=== PATIENT | female | born 1945 | race Hispanic/Latino ===

== ENCOUNTER 2016-08-14 17:08 | Emergency (ER) | payer MEDICARE, OTHER ==
[2016-08-14 17:28] VITALS: BP 161/70
[2016-08-14] MEDS ORDERED: ALBUTEROL SULFATE 2.5 MG/0.5 ML VIAL.NEB IH ONE ×2 (17:37→17:43)
--- NOTE | 2016-08-14 18:40 | ERNOTE ---
Medical Problem HPI - Narrative Date of Service: 08/14/16 - General Chief Complaint: Flu Symptoms Time Seen by Provider: 08/14/16 17:30 Source: patient Exam Limitations: no limitations - Immun/Allergies/Home Medications Allergies/Adverse Reactions: Allergies aspirin Allergy (Verified 08/14/16 17:22) Home Medications: HOME MEDICATIONS Albuterol Sulfate [Proair Hfa] 1 - 2 puff IH Q4H PRN #1 inhaler 08/14/16 [Last Taken Unknown] Levofloxacin [Levaquin] 500 mg PO DAILY #10 tab 08/14/16 [Last Taken Unknown] Promethazine HCl/Codeine [Phenergan W/Codeine Syrup] 5 ml PO Q4H PRN #180 ml [Last Taken Unknown] - History of Present History Narrative: patient presents from urgent care. She has had under 2 days of illness with cough. She tested positive for Influenza. She was written s ascript for Tamiflu but her sats were somewhat low so she was sent here. Patient relates a Hx of pneumonia. She states her cough is severe, no hemoptysis. She feels like when she had pneumonia in the past. No vomiting. Mild CP with cough only. No PE Sx. She tells me she is heading back home to [facility]. When I discuss blood testing with her she declines this and understands risks and benefits. She is willing to have a CXR. Timing: constant Modifying Factors - (Improves): Present: other - none Modifying Factors - (Worsens): Present: other - none Review of Systems - Review of Systems Constitutional: Present: fever ENT: Present: nose congestion Respiratory: Present: cough Cardiology: Present: See HPI Gastrointestinal/Abdominal: Absent: abdominal pain Genitourinary: Absent: dysuria Neurological: Present: no symptoms reported Physical Exam - Physical Exam General Appearance: Present: alert, no apparent distress, other - speaking in full sentences. Frequent cough. Requesting cough medication. Non-toxic, no distress. Eye Exam: Normal inspection: bilateral, PERRL: bilateral Ears, Nose, Throat: Present: nasal congestion, normal pharynx Neck: Present: normal inspection Respiratory: Present: no respiratory distress, normal breath sounds, no accessory muscle use, lungs clear, chest tenderness, other - no active wheezing. Speaks in full sentences. No distress. Frequent cough. Cardiovascular/Chest: Present: regular rate, rhythm Gastrointestinal/Abdominal: Present: normal bowel sounds, nontender Extremity Exam: Present: normal range of motion Neurological Exam: Present: alert, normal mood/affect, no motor/sensory deficits. Absent: motor weakness Skin Exam: Absent: skin rash ED Progress - Vital Signs Patient's Vital Signs:: I have reviewed the patient's vital signs. Vital Signs: Vital Signs 08/14/16 08/14/16 17:22 17:55 Temperature 36.8 C Pulse Rate 88 86 Respiratory 18 17 Rate Blood Pressure 161/70 O2 Sat by Pulse 91 93 Oximetry - X-Ray X-Ray #1 X-Ray: chest Interpretation: Interp. by me X-ray Comments: Haziness RLL possible early infiltrate - Progress/Reassessment Chief Complaint: Flu Symptoms Progress Note-Subjective: 08/14/16 18:32 Positive influenza A. Neb given. RA sates after neb 98%. No distress. patient declines blood testing. Given she is going to [facility] and CXR changes, not read by radiologist I will also cover with ABx. Tamiflu already given. She does not want to have blood testing or be observed in the hospital. She understands risks and benefits. She wishes to go home. Non-toxic, no distress. Not hypoxic. Departure - Departure Clinical Impression: Influenza, Cough Disposition: Home self-care Condition: Stable Additional Instructions: Rest. FLuids. Take Tamiflu as directed. Antibiotics as directed. Cough medication. Inhaler. See your dodtor wednesday for a re-check. Return if you change your mind about having any of the additional testing we discussed or if your condition worsens or changes in any way. Prescriptions: Albuterol Sulfate [Proair Hfa] 1 - 2 puff IH Q4H PRN #1 inhaler PRN Reason: Shortness Of Breath Levofloxacin [Levaquin] 500 mg PO DAILY #10 tab Promethazine HCl/Codeine [Phenergan W/Codeine Syrup] 5 ml PO Q4H PRN #180 ml PRN Reason: Cough
== END 2016-08-14 18:46 | disposition home or self-care (01) ==
LOC: ER 17:08
DX: R05 Cough (principal); J10.1 Influenza due to other identified influenza virus with other respiratory manifestations